=== PATIENT | female | born 1935 | race Caucasian/White ===

== ENCOUNTER → 2016-08-09 | Outpatient (CLI) | payer MEDICARE, BC ==
[~2016-08-09] MED LIST: AMARYL4 MG PO; ASA325 MG PO; FEOSOL-DPS325 MG PO; GLUCOPHAGE1000 MG PO; MEVACOR40 MG PO; MIRALAX PACKET17 GM PO; ONE DAILY1 EACH PO; PROTONIX40 MG PO; SENOKOT S1 TAB PO; TYLENOL DPS325 MG PO
== END | disposition home or self-care (01) ==
LOC: RAD.S 11:32
DX: R10.9 Unspecified abdominal pain (principal); R63.4 Abnormal weight loss; R63.0 Anorexia; R68.89 Other general symptoms and signs; K57.90 Diverticulosis of intestine, part unspecified, without perforation or abscess without bleeding; N32.89 Other specified disorders of bladder; Z85.3 Personal history of malignant neoplasm of breast

== ENCOUNTER → 2016-08-17 | Outpatient (CLI) | payer MEDICARE, BC | END | disposition home or self-care (01) | LOC: RAD.S 14:39 | DX: R93.8 Abnormal findings on diagnostic imaging of other specified body structures (principal); N85.8 Other specified noninflammatory disorders of uterus ==